=== PATIENT | male | born 1945 | race Caucasian/White ===

== ENCOUNTER 2022-11-05 15:17 | Inpatient (IN) | payer MEDICARE, SELFPAY ==
[2022-11-05] VITALS (42 sets, daily range): BP systolic 42–142; BP diastolic 21–63; PULSE 61–103; RESP 12–22; TEMP 31.1–35.1; O2SAT 94–100; BMI 31.6
--- NOTE | ~2022-11-05 | CT_ITS ---
EXAMINATION: CT OF THE THORAX, ABDOMEN AND PELVIS WITHOUT CONTRAST CLINICAL INFORMATION: Questionable pneumonia, rule out free air. COMPARISON: None TECHNIQUE: Multiple axial images were obtained through the chest, abdomen, and pelvis without intravenous contrast. Sagittal and coronal reformatted images were obtained on the technologist's workstation. This CT examination was performed using dose optimization techniques as appropriate, variously including the following: *Automated exposure control *Adjustment of mA and/or kV according to patient size (this includes techniques or standardized protocols for targeted exams where dose is matched to indication/reason for exam; i.e. extremities or head) *Use of iterative reconstruction technique DLP: 2075 mGy-cm Disclaimer: Optimal assessment of the viscera is limited without the use of contrast. FINDINGS: THORAX: Thyroid Gland: The visualized thyroid gland is normal. Lymph Nodes: No supraclavicular, axillary, mediastinal or hilar lymphadenopathy is identified. Cardiovascular And Mediastinum: The heart is normal in size without pericardial effusion. No coronary artery calcification. The great vessels of the thorax are normal in course. Airways: The trachea and central bronchi are normal. Endotracheal tube terminates within the mid trachea. Collapse of the left lower lobe bronchus and air bronchograms through the left lower lobe consolidation. Lungs: Left lower lobe airspace consolidation consistent with pneumonia. Small dependent consolidative changes in the right lower lobe may be related to aspiration. Right apical paraseptal emphysema. Pleura: No pleural effusion. No pneumothorax. ABDOMEN/PELVIS: Liver: Few scattered hypodensities throughout the liver, the largest in the right inferior hepatic lobe measuring 4.2 x 4.0 cm, consistent with cysts. Gallbladder: Noninflamed. Biliary System: No intrahepatic or extrahepatic biliary dilation. Pancreas: Homogeneous in attenuation. Spleen: Normal in size. Genitourinary: Nonspecific bilateral perinephric stranding. No contour deforming masses. No obstructive uropathy. No renal calculi. Urinary bladder collapsed around a Pandey catheter balloon. Adrenal Glands: Unremarkable. Reproductive: Prostate present. Gastrointestinal: Endogastric tube coiled within the stomach and terminates just prior to the pylorus. The visualized alimentary tract is normal in course. No evidence of obstruction. Entire colon is fluid-filled with moderate stool burden within the sigmoid colon. Appendix: The appendix is seen in its entirety and is unremarkable. Peritoneum: No pneumoperitoneum. No intra-abdominal fluid collection. Mesenteric edema. Bilateral fat-containing inguinal hernias, left greater than right. Vasculature: Infrarenal abdominal aortic aneurysm measuring 3.8 cm. Lymph Nodes: No pathologically enlarged abdominal or pelvic lymph nodes. SOFT TISSUES/MUSCULOSKELETAL: There is no acute fracture or significant focal osseous lesion. CT/CT abdomen pelvis wo IV con IMPRESSION: CHEST: Left lower lobe pneumonia. Abdomen/pelvis: 1. Nonspecific mesenteric edema. No focal fluid collection or pneumoperitoneum. 2. Fluid-filled colon consistent with diarrhea. 3. Infrarenal abdominal aortic aneurysm measuring 3.8 cm. Based on published guidelines in J Am Sunshine Radiol 2013; 10(10):789-794 and J Vasc Surg. 2018; 67:2-77, the recommendation for an abdominal aortic aneurysm with diameter 3.5-3.9 cm is follow-up every 2 years. Fleischner guidelines were followed.
--- NOTE | ~2022-11-05 | XR_ITS ---
EXAMINATION: XR CHEST 2 VIEWS CLINICAL INFORMATION: Chest pain. COMPARISON: None. TECHNIQUE: Frontal and lateral views of the chest were obtained. FINDINGS: The heart, great vessels, pulmonary vasculature and mediastinum are normal. The lungs show no focal infiltrate, effusion or pneumothorax. There is no acute osseous abnormality. There are extensive overlapping monitor leads. A nasogastric tube is noted, with tip situated inferior to the left hemidiaphragm and cutoff of the submitted examination. XR/XR chest 1V IMPRESSION: No active cardiopulmonary disease.
--- NOTE | ~2022-11-05 | CT_ITS ---
EXAMINATION: CT HEAD WITHOUT CONTRAST CLINICAL INFORMATION: Subdural hematoma. Cardiac arrest. COMPARISON: None available. TECHNIQUE: Contiguous axial imaging was performed from the skull base to vertex without intravenous administration of contrast. This CT examination was performed using dose optimization techniques as appropriate, variously including the following: *Automated exposure control. *Adjustment of mA and/or kV according to patient size (this includes techniques or standardized protocols for targeted exams where dose is matched to indication/reason for exam; i.e. extremities or head). *Use of iterative reconstruction technique. DLP: 878 mGy-cm FINDINGS: Diffuse loss of weller-white matter distinction. The deep nuclei are not well delineated. Exaggerated relative attenuation of the intracranial vasculature. Associated effacement of the cerebral sulci. No overt transtentorial herniation at this time. No evidence of acute intracranial hemorrhage. No evidence of obstructive hydrocephalus at this time. No midline shift. No demonstrated extra-axial fluid collections. The patient is intubated with orogastric tube in place. No acute soft tissue or osseous abnormalities. The mastoid air cells and visualized paranasal sinuses are clear. Moderate rightward nasal septal deviation. Left-sided estuardo bullosa. Bilateral lens extractions. CT/CT head/brain wo IV con IMPRESSION: 1. Diffuse loss of weller-white matter distinction with effacement of the cerebral sulci. Findings are suggestive of diffuse anoxic brain injury. 2. No evidence of acute intracranial hemorrhage. This critical result was discussed with TAMIR Cason at 21:13 on 11/05/2022 and it was ascertained that the content and urgency of the report was understood at the time of direct communication.
--- NOTE | 2022-11-05 07:32 | ECG_ITS ---
Test Reason : cardiac arrest Blood Pressure : / mmHG Vent. Rate : 066 BPM Atrial Rate : 066 BPM P-R Int : 230 ms QRS Dur : 130 ms QT Int : 460 ms P-R-T Axes : 081 111 065 degrees QTc Int : 482 ms Sinus rhythm with 1st degree A-V block Right bundle branch block Cannot rule out Inferior infarct (cited on or before 05-NOV-2022) Abnormal ECG When compared with ECG of 26-JAN-2005 08:21, UT interval has increased Right bundle branch block has replaced Incomplete right bundle branch block Referred By: Porfirio Acevedo Electronically Signed By:FRED FUNG
[2022-11-05 15:54] LABS: Basophils Percent Auto 0.2 % (0-2); Eosinophils Percent Auto 0.1 % (0-4); Hematocrit 46.4 % (42.0-52.0); Hemoglobin 13.6 g/dl (14.0-18.0); Imm Gran Abs Auto 0.46 X10*3/uL (0.00-0.03); Imm Gran Pct Auto 2.8 % (0.0-0.4); Lymphocytes Absolute Auto 1.3 X10*3/uL (1.2-4.9); Lymphocytes Percent Auto 7.6 % (20-40); MANUAL DIFF FLAG SCAN; Mean Corpuscular HGB Conc 29.3 g/dl (31.0-36.0); Mean Corpuscular Hemoglobin 32.9 pg (27.0-33.0); Mean Platelet Volume 9.9 fL (9.4-12.4); Monocytes Absolute Auto 1.6 X10*3/uL (0.1-1.2); Monocytes Percent Auto 9.9 % (2-11); NRBC Pct Auto 0.5 /100WBC (0.0-0.2); Neutrophils Absolute Auto 13.2 x10*3/uL (2.0-8.3); Neutrophils Percent Auto 79.4 % (45-73); Platelet Count 190 X10*3/uL (160-400); Red Blood Count 4.13 X10*6/uL (4.60-5.80); Red Cell Distribution Width 14.9 % (11.0-16.0); SCAN SMEAR FLAG 1; White Blood Count 16.6 X10*3/uL (4.8-10.8)
[2022-11-05 15:56] LABS: VBG Base Excess -26.1 mmol/L; VBG HCO3 7 mmol/L (22-26); VBG pCO2 38 mmHg; VBG pH 6.84 (7.32-7.43); VBG pO2 152 mmHg
[2022-11-05 15:59] LABS: Venous Blood Gas Refer to POC result
[2022-11-05 16:02] LABS: Mean Corpuscular Volume 112.3 fL (80.0-98.0)
[2022-11-05 16:06] LABS: INTERNATIONAL NORM RATIO 1.5 (0.9-1.1); Prothrombin Time 17.9 SEC (11.1-13.3)
--- NOTE | 2022-11-05 16:06 | ED_ITS ---
HPI - CPR General Chief Complaint: Cardiac Arrest/CPR Stated Complaint: CARDIAC ARREST PER EMS Time Seen by Provider: 11/05/22 15:49 Source: EMS Mode of arrival: EMS Limitations: altered mental status History of Present Illness HPI narrative: This is a 77 years old male brought by the public address systems mechanic in full cardiac arrest. He arrived a systolic with CPR ongoing. According to the EMS he had a fall earlier called an ambulance refused to be transported and then 2 hours later a friend called the because he was found down. At this time with known of any collateral to get the history. MD complaint: found unresponsive Onset (ago): hour(s) (1) Place: home Bystander CPR performed: No AED applied by bystander/wheelchair van operator first responder: Yes Shock advised: No Initial findings in the field: unresponsive ROSC in the field: Yes (transient then asystolic again) Associated injuries: No Known history of: other (unknown) Treatments prior to arrival: intubation Related Data Allergies Allergy/AdvReac Type Severity Reaction Status Date / Time No Known Allergies [NKA] Allergy Mild UNKNOWN Unverified 11/13/19 16:23 Review of Systems 2 Review of Systems: Yes Unobtainable due to mental condition PMFSH Social History Social History Advance Directives: No Advance Directives Information Provided: No Physical Exam 2 Vital Signs: Vital Signs: Last Vital Signs Temp 95.2 F L 11/05/22 16:24 Pulse 68 11/05/22 16:24 Resp 22 H 11/05/22 16:24 BP 46/22 L 11/05/22 16:24 Pulse Ox 98 11/05/22 16:24 O2 Del Method Mechanical Ventil ation 11/05/22 16:24 FiO2 100 11/05/22 15:38 Const: Other: Unresponsive cyanotic CPR ongoing Nutritional Appearance: obese HEENT: Other: Orally intubated Neck: Other: No tracheal deviation Resp: Other: Ventilated by EMS Auscultation: clear to auscultation bilaterally Cardio: Other: No heart sounds GI: Other: Abdomen distended Neuro: Other: Unresponsive Course Reevaluation(s) Reevaluation #1: Because no end-tidal CO2 was detected during the ventilation I removed the ETT and I reintubated the patient under direct visualization, was able to visualize the vocal cord to see the ET tube going through the cord I had an excellent end- tidal right after, as soon as I intubated the patient patient had [place]. I also inserted the right femoral vein central line Time: 16:12 Reevaluation #2: I am off shift now signed out to Dr BENTLEY,no family member available so far,no collateral,imaging and rest of labs pending,I spoke with dr Moise as well Time: 16:42 Medical Decision Making Medical Decision Making [facility] Narrative: Patient presented to the emergency department in full cardiac arrest no end- tidal was diarrhea a detected therefore he was intubated by me with good visualization of the cord and good end-tidal at that point we had rosc back. Differential Diagnosis Differential Diagnoses: The differential diagnosis associated with the presentation includes CO/head bleed Lab Data [facility] Lab Attestation statement: I reviewed the patient's lab results. 11/05/22 15:48 11/05/22 15:43 Labs: Lab Results 11/05/22 11/05/22 Range/Units 15:43 15:48 WBC 16.6 H (4.8-10.8) X10*3/uL RBC 4.13 L (4.60-5.80) X10*6/uL Hgb 13.6 L (14.0-18.0) g/dl Hct 46.4 (42.0-52.0) % MCV 112.3 H (80.0-98.0) fL MCH 32.9 (27.0-33.0) pg MCHC 29.3 L (31.0-36.0) g/dl RDW 14.9 (11.0-16.0) % Plt Count 190 (160-400) X10*3/uL MPV 9.9 (9.4-12.4) fL Immature Gran % (Auto) 2.8 H (0.0-0.4) % Neut % (Auto) 79.4 H (45-73) % Lymph % (Auto) 7.6 L (20-40) % Ventura % (Auto) 9.9 (2-11) % Eos % (Auto) 0.1 (0-4) % Baso % (Auto) 0.2 (0-2) % Lymph # (Auto) 1.3 (1.2-4.9) X10*3/uL Ventura # (Auto) 1.6 H (0.1-1.2) X10*3/uL Eos # (Auto) 0.0 (0.0-0.4) X10*3/uL Baso # (Auto) 0.0 (0.0-0.2) X10*3/uL Abs Immat Gran (auto) 0.46 H (0.00-0.03) X10*3/uL Absolute Neuts (auto) 13.2 H (2.0-8.3) x10*3/uL Absolute Nucleated RBC 0.090 H (0.0-0.012) X10*3/uL Nucleated RBC % (auto) 0.5 H (0.0-0.2) /100WBC PT 17.9 H (11.1-13.3) SEC INR 1.5 H (0.9-1.1) VBG pH 6.84 L* (7.32-7.43) VBG pCO2 38 mmHg VBG pO2 152 mmHg VBG HCO3 7 L (22-26) mmol/L VBG O2 Saturation 99.0 % VBG Base Excess -26.1 mmol/L Sodium 147 H (135-145) mmol/L Potassium 5.6 H (3.3-5.1) mmol/L Chloride 114 H (96-108) mmol/L Carbon Dioxide 11 L (22-29) mmol/L Anion Gap 28 H (12-20) BUN 25 H (9-16) mg/dL Creatinine 1.36 (0.5-1.4) mg/dL Estim Creat Clear Calc TNP Estimated GFR 51 Random Glucose 73 (60-115) mg/dL Lactic Acid 19.4 H* (0.5-2.0) mmol/L Calcium 7.3 L (8.4-10.2) mg/dL Total Bilirubin 0.7 (0.0-1.0) mg/dL AST 265 H (5-37) U/L ALT 101 H (0-40) U/L Alkaline Phosphatase 54 (39-117) U/L Total Protein 4.5 L (6.5-8.0) g/dL Albumin 2.3 L (3.5-5.0) g/dL Independent Interpretation I performed an independent interpretation of an: EKG (Normal sinus rhythm rate 66 right bundle-branch block) Procedures Central Line Placement Right Femoral: Prep: mask, gown and gloves Central Line Prep: Povidone-Iodine 1% Ultrasound Used for Placement: Yes Central Line Lumen Inserted: triple Post Procedure: sutured in place Patient Tolerated Procedure: well Complications: none Intubation sedative: none Assist Device Used: fiber optic device ET Tube Size: 7.5 ET Tube Uncuffed: Yes Tube Secured Location: teeth Tube Placement Confirmation: visualized tube passing through cords, equal breath sounds bilaterally, no breath sounds over epigastrium and confirmation by capnometry Patient Tolerated Procedure: no complications Intubation Complications: none Critical Care Time Critical Care Time Total Critical Care Time: 90 Attestation: resuscutation Discharge Plan Discharge Clinical Impression: Cardiac arrest Patient Disposition: Still a Patient
[2022-11-05] MEDS: Norepinephrine Bitartrate/D5W 8 MG/250 ML PLAST..BAG 10.45 MG IV (16:08)
[2022-11-05 16:12] LABS: Alanine Aminotransferase 101 U/L (0-40); Albumin Level 2.3 g/dL (3.5-5.0); Alkaline Phosphatase 54 U/L (39-117); Anion Gap 28 (12-20); Aspartate Amino Transferase 265 U/L (5-37); Bilirubin Total 0.7 mg/dL (0.0-1.0); Blood Urea Nitrogen 25 mg/dL (9-16); Calcium 7.3 mg/dL (8.4-10.2); Carbon Dioxide 11 mmol/L (22-29); Chloride 114 mmol/L (96-108); Estimated Glomerular Filt Rate 51; Glucose Random 73 mg/dL (60-115); Potassium 5.6 mmol/L (3.3-5.1); Sodium 147 mmol/L (135-145); Total Protein 4.5 g/dL (6.5-8.0)
[2022-11-05 16:17] LABS: Lactic Acid 19.4 mmol/L (0.5-2.0)
[2022-11-05] MEDS: 0.9 % Sodium Chloride 1,000 ML 999 ML IVCONT ×2 (17:09→17:10)
--- NOTE | 2022-11-05 17:19 | PC.NURSE ---
per MD increase Levophed to 0.4
[2022-11-05] MEDS: Sodium Bicarbonate 8.4% 150 MEQ in Dextrose 5 % 850 ML 100 MEQ IV (17:28)
[2022-11-05 17:51] LABS: Reflex Lactate? Lactic Acid Added
[2022-11-05 17:54] LABS: SLIDE REVIEW VERIFIED
[2022-11-05 18:08] LABS: Glucose, Whole Blood 98 mg/dL (60-115)
[2022-11-05 18:08] LABS: VBG Base Excess -13.9 mmol/L; VBG HCO3 14 mmol/L (22-26); VBG pCO2 42 mmHg; VBG pH 7.13 (7.32-7.43); VBG pO2 91 mmHg
[2022-11-05 18:15] LABS: Venous Blood Gas Refer to POC result
[2022-11-05 18:36] LABS: Lactic Acid 14.2 mmol/L (0.5-2.0); Troponin-I High Sensitivity 137.2 ng/L (<3.5-35.0)
--- NOTE | 2022-11-05 18:57 | PC.NURSE ---
Pt FROYA from home, unwitnessed arrest at home, friend found pt on floor unresponsive and called EMS. EMS arrived at approximately 1415 and began CPR. After 2mg epi the acheived ROSC but then lost the pulse again. CPR resumed again, patient was intubated in the field with a 7.5 tube Upon arrival to ED, patient was on mary for compressions. ET tube out of place so no CO2 was able to be captured 1516: 1mg epinephrine given, asystole, no capnography 1518: pulse check, asystole, no pulse, 1mg Epi given 1520: asystole, no pulse, resume CPR, blood glucose 98 1521: 1mg Epi 1522: asystole, resume CPR 1523: no capnography, 1mg epi 1524: asystole, no capnography, 1525: no capnography, pt re-intubated by Dr. Acevedo due to ET tube being out place, 7.5, 27 at the lip 1526: asystole, 35 capnography, 20g in RW placed 1527: capnography 38, 1mg epi given 1528: sinus oneal, per MD continue compressions 1529: normal sinus, pulse regained, CO2 41
[2022-11-05] MEDS: Albumin Human 25 % 100 ML IV (19:38)
[2022-11-05] MEDS: Sodium Chloride 0.45 % 1,000 ML 1000 ML IVCONT (19:39)
[2022-11-05 19:57] LABS: Reflex Lactate? Lactic Acid Added
--- NOTE | 2022-11-05 20:57 | PC.NURSE ---
per PA Director Mba, pt to be placed back on bear hugger. Pt brought by this RN and respiratory to ICU
[2022-11-05 21:13] LABS: ABG Base Excess -11.2 mmol/L; ABG HCO3 16 mmol/L (22-26); ABG pCO2 39 mmHg (32-45); ABG pH 7.21 (7.35-7.45); ABG pO2 89 mmHg (83-108)
[2022-11-05] MEDS: Norepinephrine Bitartrate/D5W 8 MG/250 ML PLAST..BAG 121.26 MG IV (21:14)
[2022-11-05 21:18] LABS: Basophils Absolute Auto 0.1 X10*3/uL (0.0-0.2); Basophils Percent Auto 0.3 % (0-2); Hematocrit 44.4 % (42.0-52.0); Hemoglobin 14.1 g/dl (14.0-18.0); Imm Gran Abs Auto 0.59 X10*3/uL (0.00-0.03); Imm Gran Pct Auto 2.5 % (0.0-0.4); Lymphocytes Absolute Auto 0.4 X10*3/uL (1.2-4.9); Lymphocytes Percent Auto 1.6 % (20-40); MANUAL DIFF FLAG SCAN; Mean Corpuscular HGB Conc 31.8 g/dl (31.0-36.0); Mean Corpuscular Hemoglobin 33.3 pg (27.0-33.0); Mean Corpuscular Volume 104.7 fL (80.0-98.0); Mean Platelet Volume 9.7 fL (9.4-12.4); Monocytes Absolute Auto 1.2 X10*3/uL (0.1-1.2); Monocytes Percent Auto 5.1 % (2-11); NRBC Pct Auto 0.3 /100WBC (0.0-0.2); Neutrophils Absolute Auto 21.5 x10*3/uL (2.0-8.3); Neutrophils Percent Auto 90.5 % (45-73); Platelet Count 173 X10*3/uL (160-400); Red Blood Count 4.24 X10*6/uL (4.60-5.80); Red Cell Distribution Width 15.3 % (11.0-16.0); SCAN SMEAR FLAG 1; White Blood Count 23.8 X10*3/uL (4.8-10.8)
[2022-11-05 21:22] LABS: Appearance Urine Turbid; Color Urine Dark Yellow; Glucose Urine UA Negative (Negative); Leukocyte Esterase Urine Small (1+) (Negative); Nitrite Urine Negative (Negative); PH 5.5 (5.0-9.0); UMIC TRIGGER UA YES; Urine Blood Large (3+) (Negative); Urine Ketones Negative (Negative); Urine Protein 300 (3+) mg/dL (Neg-Trace)
[2022-11-05 21:32] LABS: Alanine Aminotransferase 499 U/L (0-40); Albumin Level 3.2 g/dL (3.5-5.0); Alkaline Phosphatase 83 U/L (39-117); Anion Gap 29 (12-20); Aspartate Amino Transferase 1097 U/L (5-37); Bilirubin Total 1.4 mg/dL (0.0-1.0); Blood Urea Nitrogen 34 mg/dL (9-16); Calcium 7.4 mg/dL (8.4-10.2); Carbon Dioxide 16 mmol/L (22-29); Chloride 100 mmol/L (96-108); Creatinine Clr Calc Pharmacy 41.9; Estimated Glomerular Filt Rate 33; Glucose Random 250 mg/dL (60-115); Magnesium 2.1 mg/dL (1.6-2.6); Phosphorus 9.8 mg/dL (2.7-4.5); Potassium 5.8 mmol/L (3.3-5.1); Sodium 139 mmol/L (135-145); Total Protein 5.8 g/dL (6.5-8.0)
[2022-11-05 21:34] LABS: Lactic Acid 10.7 mmol/L (0.5-2.0)
[2022-11-05 21:38] LABS: Bacteria Urine None Seen (None Seen); Granular Casts Urine Present; RBC Urine >20 /HPF (0-2); Red Blood Cell Casts Urine Present; WBC Urine 0-5 /HPF (0-5)
[2022-11-05 21:43] LABS: B Type Natriuretic Peptide 459 pg/mL (<100)
--- NOTE | 2022-11-05 21:47 | PC.NURSE ---
PT TO ICU FROM ED AT 2030. ON VENT WITH FIO2 50% AND O2 SAT 94%. NO COUGH OR GAG REFLEX. PUPILS 4 MM NON REACTIVE. PT FLACCID AND UNRESPONSIVE. BP 130/62 ON LEVOPHED AT 0.58MCG/KG/MIN. BICARB DRIP INFUSING ORDERED. LABS DRAWN VIA TLC RT GROIN WITHOUT COMPLICATION.
[2022-11-05 21:54] LABS: Troponin-I High Sensitivity 178.6 ng/L (<3.5-35.0)
--- NOTE | 2022-11-05 22:05 | PM.CCHP ---
History of Present Illness Date of Service: 11/05/22 Attending physician on admission: Jennifer Moise Chief Complaint: PEA ARREST HPI: ?77-year-old patient with history of osteoarthritis, hypertension, hyperlipidemia, presented to the emergency room after being found on the floor by a friend.? Reportedly patient had a mechanical fall the fdc earlier in the day, EMS were called and they assisted the patient up from the floor but refused to be transferred for medical care.? A few hours later a friend of his found him unconscious on the floor, EMS were called, they noted the patient was in PEA cardiac arrest, he was intubated and transported to the emergency room.? In the ER, resuscitation efforts continue, the patient's airway was reestablish for a seemed the to had gone into the esophagus and the trachea, to what is known to us it took about 45 minutes before ROSCwas obtained.? Reportedly he received a couple doses of epinephrine, bicarbonate, IV fluids and subsequently placed on Levophed. The post code the workup reveal a white count of 23.8, H&H of 14 and 44, platelets 173, sodium 139, potassium 5.8, chloride 100, carbon dioxide 16, anion gap 29, BUN 34, creatinine 1.? Three 6, glucose 250, lactic acid 19.4, down to 10.7, phos 9.8, magnesium 2.1.? Initial troponin was 137 went up to 178, BNP 459, albumin 3.2.? Urinalysis showed no bacteria, no white blood cells, some proteinuria and a small amount of leukocyte esterase not consistent with UTI. Venous blood gas showed pH 7.13, pCO2 42, PO2 91, HC03 14.? Patient continued to receive a bicarbonate drip and subsequently was transferred to the ICU for further care.? He had been noted to be hypothermic at 92 degrees F rectally and call in therapy had been started in the ER. ROS:? Unable to obtain Past Medical History:? As above otherwise unknown Past Surgical History:? Unknown Family history:? Noncontributory Social History:? Resident of a fdc, no history of alcohol, tobacco or drugs. CODE STATUS: FULL CODE Allergies: NKDA Home Medications: See Med Rec PHYSICAL EXAM: VS: ?139/58, 103, 18, 96% while on a ventilator on AC mode, General:? Intubated, not sedated but no responsive Skin:? Intact, no lesions, edema, erythema, clubbing or cyanosis.? No ulcers. HEENT:? Head is normocephalic, atraumatic, pupils dilated 4 mm bilaterally nonreactive.? Buccal mucosa dry.? Neck shows no masses, no bruits. Cardiac:? Clear S1-S2, no murmurs rubs or gallops. Pulmonary:? Coarse lung sounds at the bases bilaterally left more than right with fine crackles.? No wheezing Abdomen:? Protuberant, positive bowel sounds in all 4 quadrants.? Soft, nontender, no rebound or guarding.? Musculoskeletal:? Present review motion of the upper and lower extremities at the major joints showed no cogwheeling, no crepitus.? There is no leg edema no asymmetry. Neurologic:? As above, unable to assess Vascular:? 1+ pulses upper and lower extremities distally. SIGNIFICANT LABORATORY DATA:? As above REVIEW OF IMAGES: ?Awaiting results of CT scans of the head, chest, abdomen and pelvis. EKG REVIEW:? To my view this shows sinus rhythm for with a rate of 66 beats per minute.? No ST elevations, no ST depressions.? Evidence of first-degree AV block and PVCs noted.? QTC is 460.? No comparison. ASSESSMENT : 1. Status post pea arrest (unknown if this is due to a ventricular arrhythmia, mi, PE) 2. Abnormal troponin rule out acute coronary syndrome 3. Severe metabolic and lactic acidosis likely due to cardiac arrest 4. Left lower lobe community-acquired pneumonia 5. Acute hyperkalemia 6. Acute kidney injury 7. Hypovolemic hypernatremia with initial sodium 147 8. Clinical dehydration 9. Pseudo hypocalcemia with corrected calcium of 8.6 10. Hypoalbuminemia PLAN OF CARE: Admit to ICU, monitor vital signs, I's and O's, urinalysis, await and review CT results.? Will start him on empiric antibiotics (Zosyn).? Patient did receive about 3.4 L of IV fluids altogether, will recheck laboratories and recycle cardiac enzymes.? Will administer D50, insulin and albuterol 1 hour long to take care of his hyperkalemia.? I do suspect he has some sort of pneumonia based on clinical exam and white count although this could be reactive, he appears to be quite dehydrated although his sodium level was improved with IV fluids, will give maintenance fluids, discontinue nephrotoxins, continue with Levophed and will administer albumin salt, obtain blood cultures. The patient is not sedated at this point with any agents and yet he has no walk-in upper responded, his pupils are dilated and sluggish in am concerned he may have sustained significant brain injury, particularly after reviewing the images of the head CT as there is no sulci noted but we will await final radiology reading. In the meantime, I will reach out to the patient's healthcare proxy for further goals of care discussion. GI PROPHYLAXIS:? IV ppi DVT PROPHYLAXIS:? Pneumatic stockings for now if the head CT is negative for ICH will consider heparin. Clinical update [address] IMPRESSION: 1. Diffuse loss of weller-white matter distinction with effacement of the cerebral sulci. Findings are suggestive of diffuse anoxic brain injury. 2. No evidence of acute intracranial hemorrhage. CT CHEST: Left lower lobe pneumonia. Abdomen/pelvis: 1. Nonspecific mesenteric edema. No focal fluid collection or pneumoperitoneum. 2. Fluid-filled colon consistent with diarrhea. 3. Infrarenal abdominal aortic aneurysm measuring 3.8 cm. Based on published guidelines in J Am Sunshine Radiol 2013; 10(10):789-794 and J Vasc Surg. 2018; 67:2-77, the recommendation for an abdominal aortic aneurysm with diameter 3.5-3.9 cm is follow-up every 2 years. For now will continue with initial care but will certainly reach out again to the patient's healthcare proxy Mr. Jose Patel phone number [phone] to inform him of all the above. Critical care time used for critical evaluation of this patient, diagnosis, treatment and coordination of care, review her records and documentation TOTAL CRITICAL CARE TIME? 90? MIN . discussion and coordination with consultants, completely separate from any procedures performed. Patient's care was discussed in detail with Dr. Moise.? He is aware of all the above as well as the plan of care for this patient. [facility] Social History Social History Household Members: None Housing: House Unable to assess alcohol history related to: Unable to respond Patient Tobacco Use Status: Tobacco use Unknown Use of substances other than those prescribed or required for medical reasons: Unknown Substance Use Type: Unknown Currently Displaying Signs/Symptoms of Drug Intoxication Withdrawal: No Any prior treatment program specific to substance use: No Advance Directives: No Advance Directives Information Provided: No Recently lost weight without trying: Unsure Nutrition Risks: On aspiration precautions Poor oral hygiene: No Meds Allergies Allergy/AdvReac Type Severity Reaction Status Date / Time No Known Allergies [NKA] Allergy Mild UNKNOWN Unverified 11/13/19 16:23 Active Medications: Current Medications Sodium Bicarbonate 150 meq/ (Dextrose) 1,000 mls @ 100 mls/hr IV .Q10H [facility] Last Admin: 11/05/22 17:28 Dose: 100 mls/hr Sodium Chloride (Sodium Chloride 0.45 %) 1,000 mls @ 1,000 mls/hr IVCONT .Q1H [facility] Last Infusion: 11/05/22 20:57 Dose: Infused Norepinephrine Bitartrate (Levophed) 8 mg in 250 mls @ 0 mls/hr IV .Q0M [facility]; Protocol Last Admin: 11/05/22 21:14 Dose: 0.58 mcg/kg/min, 121.26 mls/hr Piperacillin Sod/Tazobactam (Sod 3.375 gm/ Sodium Chloride) 50 mls @ 100 mls/hr IV Q6H [facility] Home Medications Medication Instructions Recorded Confirmed Last Taken Type celecoxib 200 mg capsule 200 mg PO DAILY PRN moderate pain 11/05/22 11/05/22 Unknown History lisinopril 10 1 tab PO DAILY 11/05/22 11/05/22 Unknown History mg-hydrochlorothiazide 12.5 mg tablet lisinopril 20 mg tablet 20 mg PO DAILY 11/05/22 11/05/22 Unknown History rosuvastatin 20 mg tablet 20 mg PO DAILY 11/05/22 11/05/22 Unknown History Physical Exam Vital Signs: Vital Signs: Last Vital Signs Temp 93.9 F L 11/05/22 21:41 Pulse 100 11/05/22 21:41 Resp 22 H 11/05/22 21:41 BP 110/42 L 11/05/22 21:41 Pulse Ox 95 11/05/22 21:41 O2 Del Method Mechanical Ventil ation 11/05/22 21:41 O2 Flow Rate 60 11/05/22 19:42 FiO2 50 11/05/22 21:41 BMI result Body Mass Index 31.6 Results Labs 11/05/22 20:58 11/05/22 20:58 Labs: Laboratory Results - last 24 hr 11/05/22 11/05/2211/05/23 15:19 15:43 15:48 MCV 112.3 H MCH 32.9 MCHC 29.3 L RDW 14.9 Plt Count 190 MPV 9.9 Immature Gran % (Auto) 2.8 H Neut % (Auto) 79.4 H Lymph % (Auto) 7.6 L Jackson % (Auto) 9.9 Eos % (Auto) 0.1 Baso % (Auto) 0.2 Lymph # (Auto) 1.3 Jackson # (Auto) 1.6 H Eos # (Auto) 0.0 Baso # (Auto) 0.0 Abs Immat Gran (auto) 0.46 H Absolute Neuts (auto) 13.2 H Absolute Nucleated RBC 0.090 H Nucleated RBC % (auto) 0.5 H Smear Tech's Comments VERIFIED PT 17.9 H INR 1.5 H O2 Saturation ABG pH at Pt Temp ABG pCO2 at Pt Temp ABG pO2 at Pt Temp ABG HCO3 ABG Base Excess (Actual) VBG pH 6.84 L* VBG pCO2 38 VBG pO2 152 VBG HCO3 7 L VBG O2 Saturation 99.0 VBG Base Excess -26.1 Anion Gap 28 H Estim Creat Clear Calc TNP Estimated GFR 51 POC Glucose 98 Random Glucose 73 Lactic Acid 19.4 H* Calcium 7.3 L Phosphorus Magnesium Total Bilirubin 0.7 AST 265 H ALT 101 H Alkaline Phosphatase 54 B-Natriuretic Peptide Total Protein 4.5 L Albumin 2.3 L Urine Color Urine Appearance Urine pH Ur Specific Bruce Urine Protein Urine Glucose (UA) Urine Ketones Urine Blood Urine Nitrite Ur Leukocyte Esterase Urine RBC Urine WBC Ur Squamous Epith Cells Urine Bacteria Hyaline Casts Granular Casts RBC Casts 11/05/22 11/05/22 11/05/22 17:53 17:59 20:58 MCV 104.7 H D MCH 33.3 H MCHC 31.8 RDW 15.3 Plt Count 173 MPV 9.7 Immature Gran % (Auto) 2.5 H Neut % (Auto) 90.5 H Lymph % (Auto) 1.6 L Jackson % (Auto) 5.1 Eos % (Auto) 0.0 Baso % (Auto) 0.3 Lymph # (Auto) 0.4 L Jackson # (Auto) 1.2 Eos # (Auto) 0.0 Baso # (Auto) 0.1 Abs Immat Gran (auto) 0.59 H Absolute Neuts (auto) 21.5 H Absolute Nucleated RBC 0.080 H Nucleated RBC % (auto) 0.3 H Smear Tech's Comments PT INR O2 Saturation ABG pH at Pt Temp ABG pCO2 at Pt Temp ABG pO2 at Pt Temp ABG HCO3 ABG Base Excess (Actual) VBG pH 7.13 L* VBG pCO2 42 VBG pO2 91 VBG HCO3 14 L VBG O2 Saturation 96.0 VBG Base Excess -13.9 Anion Gap 29 H Estim Creat Clear Calc 41.9 Estimated GFR 33 POC Glucose Random Glucose 250 H Lactic Acid 14.2 H* 10.7 H* Calcium 7.4 L Phosphorus 9.8 H Magnesium 2.1 Total Bilirubin 1.4 H AST 1097 H ALT 499 H Alkaline Phosphatase 83 B-Natriuretic Peptide 459 H Total Protein 5.8 L Albumin 3.2 L Urine Color Dark Yellow Urine Appearance Turbid Urine pH 5.5 Ur Specific Bruce 1.020 Urine Protein 300 (3+) H Urine Glucose (UA) Negative Urine Ketones Negative Urine Blood Large (3+) H Urine Nitrite Negative Ur Leukocyte Esterase Small (1+) H Urine RBC >20 H Urine WBC 0-5 Ur Squamous Epith Cells 6-10 Urine Bacteria None Seen Hyaline Casts 3-5 Granular Casts Present RBC Casts Present 11/05/22 21:07 MCV MCH MCHC RDW Plt Count MPV Immature Gran % (Auto) Neut % (Auto) Lymph % (Auto) Jackson % (Auto) Eos % (Auto) Baso % (Auto) Lymph # (Auto) Jackson # (Auto) Eos # (Auto) Baso # (Auto) Abs Immat Gran (auto) Absolute Neuts (auto) Absolute Nucleated RBC Nucleated RBC % (auto) Smear Tech's Comments PT INR O2 Saturation 95.0 ABG pH at Pt Temp 7.21 L ABG pCO2 at Pt Temp 39 ABG pO2 at Pt Temp 89 ABG HCO3 16 L ABG Base Excess (Actual) -11.2 VBG pH VBG pCO2 VBG pO2 VBG HCO3 VBG O2 Saturation VBG Base Excess Anion Gap Estim Creat Clear Calc Estimated GFR POC Glucose Random Glucose Lactic Acid Calcium Phosphorus Magnesium Total Bilirubin AST ALT Alkaline Phosphatase B-Natriuretic Peptide Total Protein Albumin Urine Color Urine Appearance Urine pH Ur Specific Bruce Urine Protein Urine Glucose (UA) Urine Ketones Urine Blood Urine Nitrite Ur Leukocyte Esterase Urine RBC Urine WBC Ur Squamous Epith Cells Urine Bacteria Hyaline Casts Granular Casts RBC Casts Imaging Radiologist's Impressions: Impressions Chest X-Ray 11/05/22 16:34 IMPRESSION: No active cardiopulmonary disease. Head CT 11/05/22 20:39 IMPRESSION: 1. Diffuse loss of weller-white matter distinction with effacement of the cerebral sulci. Findings are suggestive of diffuse anoxic brain injury. 2. No evidence of acute intracranial hemorrhage. This critical result was discussed with TAMIR Cason at 21:13 on 11/05/2022 and it was ascertained that the content and urgency of the report was understood at the time of direct communication. Abdomen/Pelvis CT 11/05/22 20:40 IMPRESSION: CHEST: Left lower lobe pneumonia. Abdomen/pelvis: 1. Nonspecific mesenteric edema. No focal fluid collection or pneumoperitoneum. 2. Fluid-filled colon consistent with diarrhea. 3. Infrarenal abdominal aortic aneurysm measuring 3.8 cm. Based on published guidelines in J Am Sunshine Radiol 2013; 10(10):789-794 and J Vasc Surg. 2018; 67:2-77, the recommendation for an abdominal aortic aneurysm with diameter 3.5-3.9 cm is follow-up every 2 years. Fleischner guidelines were followed. Chest CT 11/05/22 20:40 IMPRESSION: CHEST: Left lower lobe pneumonia. Abdomen/pelvis: 1. Nonspecific mesenteric edema. No focal fluid collection or pneumoperitoneum. 2. Fluid-filled colon consistent with diarrhea. 3. Infrarenal abdominal aortic aneurysm measuring 3.8 cm. Based on published guidelines in J Am Sunshine Radiol 2013; 10(10):789-794 and J Vasc Surg. 2018; 67:2-77, the recommendation for an abdominal aortic aneurysm with diameter 3.5-3.9 cm is follow-up every 2 years. Fleischner guidelines were followed. Assessment and Plan Time Spent With Patient Time: Total time managing care of this patient today ____ minutes.
--- NOTE | 2022-11-05 22:06 | W.MHC.ACPN ---
Advanced Care Planning Note Advanced Care Planning Note Discussed with: other (Patient's healthcare proxy Mr. Jose Patel) Time spent (in minutes): 15 Narrative: I reached out to the above patient's healthcare proxy over the phone with whom I had a lengthy discussion in regards to patient's current medical situation, leading events from when he was transported by EMS all the way to the ICU admission. We discussed the clinical situation in detail as well as the possible sequence of events leading to these ICU admission, initially he was slightly bothered by the fact that the patient had being resuscitated and intubated for his stated that this is not something the patient with over half wanted and that nobody reached out to him (the healthcare proxy). We discussed the results of the latest images in detail particularly dose of the head CT showing significant anoxic brain injury. In light that the patient did no want to be resuscitated or intubated and now he has this significant finding, his requests is that the patient would be terminally extubated and that he would be made comfortable so that he could have a humane and non suffering passing. He further states that he has no family and that he will take care of all the arrangements for the patient. The above-mentioned conversation was witnessed by the patient's nurse Michela and at this point, his code status will be switched from full code to PSYCHOSOCIAL REHABILITATION COUNSELOR given that he was a DNR and DNI to start with. All questions were answered to the best of my abilities and he appeared to be comfortable with the current decision. I expressed my condolences and mention to him that he will be contacted when and if the patient passes during my care. Total critical care time spent during this conversation with the healthcare proxy over the phone 15 minutes. The case was discussed in detail with Dr. Moise, she is aware of all the above-mentioned events and decisions.
[2022-11-05] MEDS: fentaNYL citrate/PF 100 MCG/2 ML VIAL 50 MCG IVPUSH (22:30)
--- NOTE | 2022-11-05 22:39 | PC.NURSE ---
POWER OF SANITATION TRUCK DRIVER FOR PT WAS CALLED BY AYE EDWARDS AND STATED ON THE PHONE THAT THE PT WOULD NOT HAVE WANTED ANY RESUSCITATED EFFORTS AND WOULD NOT WANT TO BE INTUBATED ON A VENTILATOR. NETWORK COMMUNICATIONS ENGINEER ORDERS GIVEN AND ORDERS TO EXTUBATE. [facility] CALLED AND CASE WAS REVIEWED AND DECLINED. WILL CALL [facility] BACK WHEN PT IS PRONOUNCED. IV LEVOPHED SHUT OFF AT 2118 AND VENT SUPPORT STOPPED AT 2232 AFTER ADMINISTERING FENTANYL 50 MCG IVP.
--- NOTE | 2022-11-05 22:45 | PM.CCN ---
Critical Care Event Note Summary Date of Service: 11/05/22 Code activated: No Narrative: This case had a high probability of a clinically significant, sudden, or life threatening deterioration of this patient's condition which required my full and direct attention, intervention and personal management. Critical Care Time (minutes): 20
--- NOTE | 2022-11-05 22:46 | PM.DS ---
DS: Providers Provider Date of Service: 11/05/22 Date of admission: 11/05/22 20:28 Date of discharge: 11/05/22 Primary care physician: Unknown Physician Admitting clinician: Jennifer Moise Attending physician on admission: Jennifer Moise Attending physician on discharge: Jennifer Moise Discharging clinician: Keyshawn Belcher DS: Diagnosis Discharge Diagnosis (1) Cardiac arrest: Status: Acute (2) Acidosis, lactic: Status: Acute (3) Anoxic brain injury: Status: Acute DS: Summary Hospital Course Hospital Course: ADMISSION/DISCHARGE DIAGNOSIS: 1. Status post pea arrest (unknown if this is due to a ventricular arrhythmia, mi, PE) 2. Severe anoxic brain injury 3. Severe metabolic and lactic acidosis likely due to cardiac arrest 4. Left lower lobe community-acquired pneumonia 5. Acute hyperkalemia 6. Acute kidney injury 7. Hypovolemic hypernatremia with initial sodium 147 8. Clinical dehydration/ROSCOE 9. Pseudo hypocalcemia with corrected calcium of 8.6 10. Hypoalbuminemia 11. Nonspecific mesenteric edema TIME OF : ?22:44 REASON OF : ?PEA CARDIAC ARREST / ANOXIC BRAIN INJURY/ MULTI ORGAN FAILURE HPI/ HOPSITAL COURSE: ?77-year-old patient with history of osteoarthritis, hypertension, hyperlipidemia, presented to the emergency room after being found on the floor by a friend.? Reportedly patient had a mechanical fall the senior care earlier in the day, EMS were called and they assisted the patient up from the floor but refused to be transferred for medical care.? A few hours later a friend of his found him unconscious on the floor, EMS were called, they noted the patient was in PEA cardiac arrest, he was intubated and transported to the emergency room.? In the ER, resuscitation efforts continue, the patient's airway was reestablish for a seemed the to had gone into the esophagus and the trachea, to what is known to us it took about 45 minutes before ROSCwas obtained.? Reportedly he received a couple doses of epinephrine, bicarbonate, IV fluids and subsequently placed on Levophed. The post code the workup reveal a white count of 23.8, H&H of 14 and 44, platelets 173, sodium 139, potassium 5.8, chloride 100, carbon dioxide 16, anion gap 29, BUN 34, creatinine 1.? Three 6, glucose 250, lactic acid 19.4, down to 10.7, phos 9.8, magnesium 2.1.? Initial troponin was 137 went up to 178, BNP 459, albumin 3.2.? Urinalysis showed no bacteria, no white blood cells, some proteinuria and a small amount of leukocyte esterase not consistent with UTI. Venous blood gas showed pH 7.13, pCO2 42, PO2 91, HC03 14.? Patient continued to receive a bicarbonate drip and subsequently was transferred to the ICU for further care.? He had been noted to be hypothermic at 92 degrees F rectally and call in therapy had been started in the ER. Review of his EKG post arrest show sinus rhythm ventricular rate 66 beats per minute, there is no ST elevations, no ST depressions, first-degree AV block with PVCs, no comparison. While in the ICU, nursing attempted to obtain blood cultures pre friendly, start him on antibiotics, continue with Levophed but at this point there was no response even though the patient was not sedated.? Warming efforts continued with Franklin Hugger, however soon after the images were reviewed and the suspicion of anoxic brain injury was confirmed by the radiologist with the following image results: HEAD CT IMPRESSION: 1. Diffuse loss of weller-white matter distinction with effacement of the cerebral sulci. Findings are suggestive of diffuse anoxic brain injury. 2. No evidence of acute intracranial hemorrhage. CT CHEST: Left lower lobe pneumonia. Abdomen/pelvis: 1. Nonspecific mesenteric edema. No focal fluid collection or pneumoperitoneum. 2. Fluid-filled colon consistent with diarrhea. 3. Infrarenal abdominal aortic aneurysm measuring 3.8 cm. Based on published guidelines in J Am Sunshine Radiol 2013; 10(10):789-794 and J Vasc Surg. 2018; 67:2-77, the recommendation for an abdominal aortic aneurysm with diameter 3.5-3.9 cm is follow-up every 2 years. At this point I reached out to the patient's healthcare proxy Mr. Jose Patel phone number [phone] to inform him of all the above.? He was not aware that the patient had been resuscitated and intubated and stated ?this is not something that he ever wanted and ?, ?they should have call me 1st? further goals of care were discussed in detail with him over the phone and he agreed to for a terminal extubation. All medications were stopped at 22:19, patient was given 50 mg of IV fentanyl, disconnected from the vent at 10:33 and finally showed no signs of live at 22:44. Patient was pronounced by me, there was no apical heart rate, no pulse, no breathing, pupils were dilated a 6 mm bilaterally without corneal reflexes.? The patient was pronounced at 10:44. I have reached out to the patient's healthcare proxy again he was informed of the patient's passing, my condolences were expressed to him.? home is [place] in [place], nurse reached out to the [facility] and [facility] (who did not accept the case). certificate and other paperwork completed. Critical care time used for critical evaluation of this patient, diagnosis, treatment and coordination of care, review of records and Discharge summary TOTAL CRITICAL CARE TIME 45 MIN . discussion and coordination with consultants, completely separate from any procedures performed. . Patient's care was discussed in detail with Dr. Moise. she is aware of all the above as well as the plan of care for this patient. Time Spent with Patient Time attestation: Total time managing care of this patient today ____ minutes. Discharge coordination time: Greater than 30 minutes Quality: Safe Use of Opioids Does Pt have an Active Cancer Diagnosis on the Problem List?: No Quality: Stroke Does the patient have a stroke diagnosis?: No Physical Exam Vital Signs: Vital Signs: Last Vital Signs Temp 94.1 F L 11/05/22 22:00 Pulse 103 H 11/05/22 22:19 Resp 22 H 11/05/22 22:00 BP 139/58 L 11/05/22 22:19 Pulse Ox 94 11/05/22 22:00 O2 Del Method Mechanical Ventil ation 11/05/22 22:00 O2 Flow Rate 60 11/05/22 19:42 FiO2 50 11/05/22 22:00 BMI result Body Mass Index 31.6 DS: Data Data Completed and Pending Labs on day of discharge: Laboratory Results - last 24 hr 11/05/22 11/05/22 11/05/22 15:19 15:43 15:48 WBC 16.6 H RBC 4.13 L Hgb 13.6 L Hct 46.4 MCV 112.3 H MCH 32.9 MCHC 29.3 L RDW 14.9 Plt Count 190 MPV 9.9 Immature Gran % (Auto) 2.8 H Neut % (Auto) 79.4 H Lymph % (Auto) 7.6 L Cooper % (Auto) 9.9 Eos % (Auto) 0.1 Baso % (Auto) 0.2 Lymph # (Auto) 1.3 Cooper # (Auto) 1.6 H Eos # (Auto) 0.0 Baso # (Auto) 0.0 Abs Immat Gran (auto) 0.46 H Absolute Neuts (auto) 13.2 H Absolute Nucleated RBC 0.090 H Nucleated RBC % (auto) 0.5 H Smear Tech's Comments VERIFIED PT 17.9 H INR 1.5 H O2 Saturation ABG pH at Pt Temp ABG pCO2 at Pt Temp ABG pO2 at Pt Temp ABG HCO3 ABG Base Excess (Actual) VBG pH 6.84 L* VBG pCO2 38 VBG pO2 152 VBG HCO3 7 L VBG O2 Saturation 99.0 VBG Base Excess -26.1 Sodium 147 H Potassium 5.6 H Chloride 114 H Carbon Dioxide 11 L Anion Gap 28 H BUN 25 H Creatinine 1.36 Estim Creat Clear Calc TNP Estimated GFR 51 POC Glucose 98 Random Glucose 73 Lactic Acid 19.4 H* Calcium 7.3 L Phosphorus Magnesium Total Bilirubin 0.7 AST 265 H ALT 101 H Alkaline Phosphatase 54 Troponin I High Sens B-Natriuretic Peptide Total Protein 4.5 L Albumin 2.3 L Urine Color Urine Appearance Urine pH Ur Specific [place] Urine Protein Urine Glucose (UA) Urine Ketones Urine Blood Urine Nitrite Ur Leukocyte Esterase Urine RBC Urine WBC Ur Squamous Epith Cells Urine Bacteria Hyaline Casts Granular Casts RBC Casts Blood Type Antibody Screen 11/05/22 11/05/22 11/05/22 17:53 17:59 20:58 WBC 23.8 H RBC 4.24 L Hgb 14.1 Hct 44.4 MCV 104.7 H D MCH 33.3 H MCHC 31.8 RDW 15.3 Plt Count 173 MPV 9.7 Immature Gran % (Auto) 2.5 H Neut % (Auto) 90.5 H Lymph % (Auto) 1.6 L Cooper % (Auto) 5.1 Eos % (Auto) 0.0 Baso % (Auto) 0.3 Lymph # (Auto) 0.4 L Cooper # (Auto) 1.2 Eos # (Auto) 0.0 Baso # (Auto) 0.1 Abs Immat Gran (auto) 0.59 H Absolute Neuts (auto) 21.5 H Absolute Nucleated RBC 0.080 H Nucleated RBC % (auto) 0.3 H Smear Tech's Comments PT INR O2 Saturation ABG pH at Pt Temp ABG pCO2 at Pt Temp ABG pO2 at Pt Temp ABG HCO3 ABG Base Excess (Actual) VBG pH 7.13 L* VBG pCO2 42 VBG pO2 91 VBG HCO3 14 L VBG O2 Saturation 96.0 VBG Base Excess -13.9 Sodium 139 Potassium 5.8 H Chloride 100 Carbon Dioxide 16 L Anion Gap 29 H BUN 34 H Creatinine 1.96 H Estim Creat Clear Calc 41.9 Estimated GFR 33 POC Glucose Random Glucose 250 H Lactic Acid 14.2 H* 10.7 H* Calcium 7.4 L Phosphorus 9.8 H Magnesium 2.1 Total Bilirubin 1.4 H AST 1097 H ALT 499 H Alkaline Phosphatase 83 Troponin I High Sens 137.2 H* 178.6 H* B-Natriuretic Peptide 459 H Total Protein 5.8 L Albumin 3.2 L Urine Color Dark Yellow Urine Appearance Turbid Urine pH 5.5 Ur Specific [place] 1.020 Urine Protein 300 (3+) H Urine Glucose (UA) Negative Urine Ketones Negative Urine Blood Large (3+) H Urine Nitrite Negative Ur Leukocyte Esterase Small (1+) H Urine RBC >20 H Urine WBC 0-5 Ur Squamous Epith Cells 6-10 Urine Bacteria None Seen Hyaline Casts 3-5 Granular Casts Present RBC Casts Present Blood Type Antibody Screen 11/05/22 11/05/22 21:07 21:23 WBC RBC Hgb Hct MCV MCH MCHC RDW Plt Count MPV Immature Gran % (Auto) Neut % (Auto) Lymph % (Auto) Cooper % (Auto) Eos % (Auto) Baso % (Auto) Lymph # (Auto) Cooper # (Auto) Eos # (Auto) Baso # (Auto) Abs Immat Gran (auto) Absolute Neuts (auto) Absolute Nucleated RBC Nucleated RBC % (auto) Smear Tech's Comments PT INR O2 Saturation 95.0 ABG pH at Pt Temp 7.21 L ABG pCO2 at Pt Temp 39 ABG pO2 at Pt Temp 89 ABG HCO3 16 L ABG Base Excess (Actual) -11.2 VBG pH VBG pCO2 VBG pO2 VBG HCO3 VBG O2 Saturation VBG Base Excess Sodium Potassium Chloride Carbon Dioxide Anion Gap BUN Creatinine Estim Creat Clear Calc Estimated GFR POC Glucose Random Glucose Lactic Acid Calcium Phosphorus Magnesium Total Bilirubin AST ALT Alkaline Phosphatase Troponin I High Sens B-Natriuretic Peptide Total Protein Albumin Urine Color Urine Appearance Urine pH Ur Specific [place] Urine Protein Urine Glucose (UA) Urine Ketones Urine Blood Urine Nitrite Ur Leukocyte Esterase Urine RBC Urine WBC Ur Squamous Epith Cells Urine Bacteria Hyaline Casts Granular Casts RBC Casts Blood Type A Positive Antibody Screen NEGATIVE Discharge Plan Discharge Date/Time: 11/05/22 22:44 Patient Disposition: Discharge Diagnosis: CARDIAC ARREST Referrals: Physician,Unknown J [Primary Care Provider] - 1 Week Discharge Medications: No Action celecoxib 200 mg capsule 200 mg PO DAILY PRN (Reason: moderate pain) lisinopril 20 mg tablet 20 mg PO DAILY lisinopril-hydrochlorothiazide 10-12.5 mg tablet 1 tab PO DAILY rosuvastatin 20 mg tablet 20 mg PO DAILY Discharge Orders: Discharge Order (Routine); Ordered 11/06/22 Ordered By: Keyshawn Belcher Discharge Date/Time: 11/06/22 01:16
--- NOTE | 2022-11-05 22:46 | PC.NURSE ---
MONITOR SHOWS ASYSTOLE. NO PALPABLE PULSES. NO AUDIBLE OR PALPABLE BP. PT PRONOUNCED AT 2244 BY CLAUDE EDWARDS PA-C.
--- NOTE | 2022-11-05 22:55 | PC.NURSE ---
[facility] CALLED TO REPORT AND CASE WAS DECLINED BY CODY ZAMUDIO, . [employer] CALLED AND CASE WAS DEEMED UNREPORTABLE.
[2022-11-05 23:09] LABS: Reflex Lactate? Lactic Acid Added
[2022-11-06 00:47] LABS: ABG Refer to POC result
--- NOTE | 2022-11-06 00:48 | PC.NURSE ---
POST MORTEM CARE DONE. AWAITING JOSE CUI.
--- NOTE | 2022-11-06 01:14 | PC.NURSE ---
Post mortem care done and body to morgue at this time by [facility] [place] pilot plant supervisor.
--- NOTE | 2022-11-07 10:23 | PC.NURSE ---
Edited the date/time of the Discharge to match the Date/Time after speaking with quality
== END 2022-11-05 22:44 | disposition expired | DRG 91 ==
LOC: HO.ED 16:18 → HO.EDOVER 20:30 → HO.ICU 20:36
PROVIDERS: Emergency Medicine Emergency Medical Services; Internal Medicine Critical Care Medicine; Admitting Provider Physician Assistant Medical; Emergency Provider Emergency Medicine; PCP Internal Medicine; Visit Provider Physician Assistant Medical
DX: G93.1 Anoxic brain damage, not elsewhere classified (principal); I21.9 Acute myocardial infarction, unspecified; J18.9 Pneumonia, unspecified organism; I26.99 Other pulmonary embolism without acute cor pulmonale; E87.0 Hyperosmolality and hypernatremia; N17.9 Acute kidney failure, unspecified; E87.20 Acidosis, unspecified; E86.0 Dehydration; I71.43 Infrarenal abdominal aortic aneurysm, without rupture; R68.0 Hypothermia, not associated with low environmental temperature; E88.09 Other disorders of plasma-protein metabolism, not elsewhere classified; I44.0 Atrioventricular block, first degree; I10 Essential (primary) hypertension; I49.3 Ventricular premature depolarization; E78.5 Hyperlipidemia, unspecified; E87.5 Hyperkalemia; E86.1 Hypovolemia; Z86.74 Personal history of sudden cardiac arrest; Z79.899 Other long term (current) drug therapy
CPT/HCPCS: 36415; 70450; 71045; 71250; 74176; 80053; 81001; 82803; 82947; 83605; 83735; 83880; 84100; 84484; 85025; 85610; 86850; 86900; 86901; 87040; 87205; 93005; 94002; 99285; J0171; J3010; P9047

== ENCOUNTER → 2022-11-05 20:28 | Outpatient (BNV) | payer MEDICARE, SELFPAY | PROVIDERS: Admitting Provider Physician Assistant Medical; Emergency Provider Emergency Medicine; Visit Provider Physician Assistant Medical | DX: I46.9 Cardiac arrest, cause unspecified (principal); E87.20 Acidosis, unspecified; G93.1 Anoxic brain damage, not elsewhere classified | CPT/HCPCS: 99291; 99497 ==